=== PATIENT | female | born 1985 | race Caucasian/White ===

== ENCOUNTER 2021-04-03 10:26 | Emergency (ER) | payer MEDICARE, MEDICAID ==
[~2021-04-03] VITALS: Ht 160 cm; Wt 98.0 kg
[2021-04-03] MEDS ORDERED: CEVI30CA7 PO (10:45)
[2021-04-03] MEDS ORDERED: PRED5SOL2 PO (10:45)
[2021-04-03] MEDS ORDERED: CIMZIA (10:45)
[2021-04-03] MEDS ORDERED: TOP100 PO (10:45)
[2021-04-03] MEDS ORDERED: VERA240C2 PO (10:45)
[2021-04-03] MEDS ORDERED: BACL-141 PO (10:45)
[2021-04-03] MEDS ORDERED: VIT D3 (10:45)
[2021-04-03] MEDS ORDERED: FOLIC ACID (10:45)
[2021-04-03] MEDS ORDERED: SUMA100T PO (10:45)
[2021-04-03] MEDS ORDERED: HYDR200T80 PO (10:45)
[2021-04-03] MEDS ORDERED: MILN25TA PO (10:45)
[2021-04-03] MEDS ORDERED: ACETAMINOPHEN 325MG TABLET PO STA (12:10)
[2021-04-03] MEDS ORDERED: IBUP-2029 PO (13:08)
[2021-04-03 14:42] VITALS: BP 141/81
== END 2021-04-03 14:46 | disposition home or self-care (01) ==
LOC: ER 10:26
DX: S82.831A Other fracture of upper and lower end of right fibula, initial encounter for closed fracture (principal); M06.9 Rheumatoid arthritis, unspecified; M35.00 Sjogren syndrome, unspecified; Z98.1 Arthrodesis status; Z90.710 Acquired absence of both cervix and uterus; W01.0XXA Fall on same level from slipping, tripping and stumbling without subsequent striking against object, initial encounter; Y93.89 Activity, other specified; Y92.018 Other place in single-family (private) house as the place of occurrence of the external cause
CPT/HCPCS: 73610; 99283